=== PATIENT | female | born 1965 | race Caucasian/White ===

== ENCOUNTER 2016-05-04 17:31 | Emergency (ER) | payer BC ==
[2016-05-04 17:50] VITALS: BP 140/93
--- NOTE | 2016-05-04 18:19 | UC ---
Respiratory Complaint HPI - HPI Summary HPI Summary: The patient comes in today for: 1. "I want to make sure that I don't have the flu," and cough. Onset: Last night. Palliative/provocative: Cough drops makes her cough better. Quality: Hacking, dry, harsh. Region: Chest Severity: 06/20 Time: Constant. Associated symptoms: Chest pain: None. Dyspnea: None. Wheezing: None. Cough production: "Very little, clear." Rhinitis: Clear. Fevers: 100.9 this morning. Flu: In and out of nursing homes and hospitals Flu vaccine: She received in December. Body aches: Present. Vomiting: None. Diarrhea: None. * - History of Current Complaint Chief Complaint: UCRespiratory Stated Complaint: COUGH,FEVER,ACHES Time Seen by Provider: 05/04/16 18:09 Hx Obtained From: Patient Hx Last Menstrual Period: 3 WEEKS ?: No - Allergies/Home Medications Allergies/Adverse Reactions: Allergies Allergy/AdvReac Type Severity Reaction Status Date / Time No Known Allergies Allergy Verified 05/04/16 17:41 Home Medications: Home Medications Acetaminophen [Acetaminophen Extra Stren] 2 tab PO TID PRN 05/04/16 [History Confirmed 05/04/16] Ibuprofen [Motrin Ib] 2 tap PO TID PRN 05/04/16 [History Confirmed 05/04/16] Losartan TAB* [Cozaar TAB*] 05/04/16 [History] NIFEdipine ER TAB* [Procardia Xl TAB*] 1 tab PO DAILY 05/04/16 [History Confirmed 05/04/16] PMH/Surg Hx/FS Hx/Imm Hx Previously Healthy: No - Raynaud's/rx = procardia. Endocrine History Of: Denies: Diabetes, Thyroid Disease, Hyperthyroidism, Hypothyroidism, Dyslipidemia Cardiovascular History Of: Reports: Hypertension - TREATED Denies: Cardiac Disorders, Pacemaker/ICD, Myocardial Infarction, Congestive Heart Failure, Atrial Fibrillation, Deep Vein Thrombosis, Bleeding Disorders Respiratory History Of: Denies: COPD, Asthma, Bronchitis, Pneumonia, Pulmonary Embolism GI/ History Of: Denies: Gastroesophageal Reflux, Ulcer, Gastrointestinal Bleed, Gall Bladder Disease, Kidney Stones, Diverticulitis, Renal Disease, Urosepsis Neurological History Of: Denies: TIA, CVA, Dementia, Seizures, Migraine Psychological History Of: Denies: Anxiety, Depression, Bipolar Disorder, Schizophrenia, Post Traumatic Stress Disorder Cancer History Of: Denies: Lung Cancer, Colorectal Cancer, Breast Cancer, Prostate Cancer, Cervical Cancer Other History Of: Negative For: HIV, Hepatitis B, Hepatitis C, Anticoagulant Therapy - Surgical History Surgical History: Yes Surgery Procedure, Year, and Place: 03/2003 Essure procedure,[place] teeth - Family History Known Family History: Positive: Cardiac Disease, Hypertension - Social History Occupation: Employed Full-time Alcohol Use: Occasionally Substance Use Type: None Smoking Status (MU): Never Smoked Tobacco Review of Systems Constitutional: Negative Skin: Negative Eyes: Negative ENT: Sore Throat, Nasal Discharge Respiratory: Cough Cardiovascular: Negative Gastrointestinal: Negative Musculoskeletal: Arthralgia, Myalgia All Other Systems Reviewed And Are Negative: Yes Physical Exam Triage Information Reviewed: Yes Appearance: Well-Appearing, No Pain Distress, Well-Nourished Vital Signs: Initial Vital Signs Temp 99.7 F 05/04/16 17:46 Pulse 101 05/04/16 17:46 Resp 16 05/04/16 17:46 BP 140/93 05/04/16 17:46 Pulse Ox 96 05/04/16 17:46 Vital Signs Reviewed: Yes Eyes: Positive: Conjunctiva Clear. Negative: Discharge ENT: Positive: Hearing grossly normal. Negative: Pharyngeal erythema, Nasal congestion, Nasal drainage, TM bulging, TM dull, TM red, Tonsillar swelling, Tonsillar exudate Dental: Negative: Gross Decay/Caries @, Dental Fracture @ Neck: Positive: Supple, Nontender, No Lymphadenopathy. Negative: Nuchal Rigidity Respiratory: Positive: Lungs clear, No respiratory distress, No accessory muscle use. Negative: Crackles, Wheezing Cardiovascular: Positive: RRR, No Murmur Abdomen Description: Positive: Nontender, No Organomegaly, Soft. Negative: Distended, Guarding Musculoskeletal: Positive: Strength Intact, ROM Intact, No Edema Neurological: Positive: Alert, Muscle Tone Normal Psychological: Positive: Age Appropriate Behavior, Consolable Skin: Negative: rashes, breakdown UC Diagnostic Evaluation - Laboratory O2 Sat by Pulse Oximetry: 96 Diagnostic Studies Comment: Influenza A: (+). Influenza B: (-) Respiratory Course/Dx - Differential Dx/Diagnosis Differential Diagnosis/HQI/PQRI: Bronchitis, Influenza, Laryngitis, Sinusitis Provider Diagnoses: influenza Discharge - Discharge Plan Condition: Stable Disposition: HOME Patient Education Materials: Influenza (ED) Referrals: Lana Hebert MD [Primary Care Provider] - 1 Week (Please see your primary care provider in a week to see how well you are doing. If you get worse, please be seen sooner in the ER or through us.)
[2016-05-04] MEDS ORDERED: Oseltamivir CAP* 75 MG PO ONE (19:07)
[2016-05-04] MEDS ORDERED: Oseltamivir CAP* 75 MG ONE (19:12)
== END 2016-05-04 19:15 | disposition home or self-care (01) ==
LOC: UCEAST 17:31
DX: J11.1 Influenza due to unidentified influenza virus with other respiratory manifestations (principal)
CPT/HCPCS: 87502; 99212; A9270-GY; G0463

== ENCOUNTER 2019-01-04 08:47 | Day surgery (SDC) | payer BC ==
[~2019-01-04 08:47] MED LIST: Buffered Lidocaine 1% SYRIN* 1 ML/SYRINGE INTRADERM ONE; Lactated Ringers 1000 ML Bag* 1,000 ML IV SCH
[2019-01-04] MEDS ORDERED: ceFAZolin 2 GM in NS PREMIX(*) 2 GM/100 ML BAG IVPB ONE (09:50)
[2019-01-04] MEDS ORDERED: Bupivacaine 0.25% EPI 200,000* 30 ML SDV ONE (10:58)
[2019-01-04] MEDS ORDERED: fentaNYL* 50 MCG/ML 2 ML VIAL (100 MCG VIAL) ONE ×3 (11:08→13:06)
[2019-01-04] MEDS ORDERED: Propofol* 10 MG/ML 20 ML BTL ONE (11:08)
[2019-01-04] MEDS ORDERED: Midazolam* 1 MG/ML 5 ML VIAL (5 MG) ONE (11:09)
[2019-01-04] MEDS ORDERED: Rocuronium* 10 MG/ML VIAL ONE (11:09)
[2019-01-04] MEDS ORDERED: Dexamethasone IV* 4 MG/ML 1 ML (4 MG) ONE (11:32)
[2019-01-04] MEDS ORDERED: Ondansetron INJ* 2 MG/ML VIAL ONE (12:05)
[2019-01-04] MEDS ORDERED: Ketorolac INJ* 30 MG/ML 1 ML VIAL ONE (12:05)
[2019-01-04] MEDS ORDERED: diPHENhydraMINE IV* 50 MG/ML 1 ml VIAL (BENADRYL) ONE (12:15)
[2019-01-04] MEDS ORDERED: Glycopyrrolate IV* 0.2 MG/ML 1 ML VIAL ONE (12:15)
[2019-01-04] MEDS ORDERED: Neostigmine Methylsulfate* 3 MG/3 ML SYRINGE ONE (12:15)
[2019-01-04 13:08] VITALS: BP 114/70
[2019-01-04] MEDS ORDERED: oxyCODONE/Acetamin 5/325 MG* TAB PO PRN (13:10)
[2019-01-04] MEDS ORDERED: Naloxone* 0.4 MG/ML 1 ML VIAL IV PRN (13:10)
[2019-01-04] MEDS ORDERED: DiMENhydriNATE IV* 50 MG/ML VIAL IV PUSH PRN (13:10)
[2019-01-04] MEDS ORDERED: Ondansetron INJ* 2 MG/ML VIAL IV PRN (13:10)
[2019-01-04] MEDS ORDERED: HYDROmorphone INJ1* 1 MG/ML SYRINGE IV PRN (13:10)
[2019-01-04] MEDS ORDERED: oxyCODONE/Acetamin 5/325 MG* TAB ONE (13:12)
[2019-01-04] MEDS: fentaNYL* 50 MCG/ML 2 ML VIAL (100 MCG VIAL) IV PRN ×4 (13:13→13:42)
--- NOTE | 2019-01-04 23:26 | OP ---
CC: Lana Ogden MD * DATE OF SURGERY: 01/04/19 - SDS DATE OF : 69 SURGEON: Deonte Hughes MD SPECIAL ORDER JEWELER: WAYNE Miller ANESTHESIOLOGIST: Dr. Morataya. ANESTHESIA: General endotracheal. PRE-OP DIAGNOSIS: Gallbladder polyps. POST-OP DIAGNOSIS: Gallbladder polyps. OPERATIVE PROCEDURE: Laparoscopic cholecystectomy. ESTIMATED BLOOD LOSS: Minimal. IV FLUIDS: Crystalloid. SPECIMENS: Gallbladder. DRAINS: None. COMPLICATIONS: None. COUNTS: Instrument, needle, and sponge counts were correct. DESCRIPTION OF PROCEDURE: The patient was brought to the operating room and placed on the table supine. Sequential compression devices were placed on both lower extremities. General anesthesia was administered. Intravenous antibiotics were administered. The patient's abdomen was prepped and draped in usual sterile fashion. Time-out was performed. Local anesthetic was infiltrated into the skin and soft tissue prior to making each incision. Entry into the abdomen was through a transumbilical vertical incision using an open technique through a prior scar. After accessing the peritoneal cavity with a 12-mm trocar, carbon dioxide was insufflated to a pressure of 15 mmHg. Under direct visualization, a 5 mm trocar was placed in the subxiphoid position. Two 5-mm trocars were placed in the right upper quadrant. Gallbladder was identified. It did not appear to be inflamed. The fundus was grasped and retracted cephalad. The infundibulum was grasped and retracted laterally and inferiorly and the peritoneum investing the gallbladder was incised sharply and dissected free to identify the cystic duct and the cystic artery. Each structure was bluntly dissected out and a critical view was obtained. The structures were doubly clipped and divided. The gallbladder was then freed from attachments to the liver using the hook cautery staying in an avascular plane. Once the gallbladder was free, it was placed into the endoscopic retrieval bag and retrieved through the umbilical site. Hemostasis was assured. Clips were noted to be intact. Ports removed under visualization. Carbon dioxide was released. Umbilical wound was closed with 0 Vicryl in [id number] fashion to approximate the fascia. Skin incisions were closed with 4-0 Monocryl in subcuticular fashion. Steri-strips were applied. The patient tolerated the procedure well, was extubated uneventfully and transferred to the recovery room in stable condition. [id number]/[facility] #: [id number] CAROLANN
== END 2019-01-04 15:46 | disposition home or self-care (01) ==
LOC: OR 08:47
PROVIDERS: ATTEND Surgery
DX: K81.1 Chronic cholecystitis (principal); I10 Essential (primary) hypertension; I73.00 Raynaud's syndrome without gangrene; R01.1 Cardiac murmur, unspecified; D56.3 Thalassemia minor; Z79.1 Long term (current) use of non-steroidal anti-inflammatories (NSAID); Z79.899 Other long term (current) drug therapy
CPT/HCPCS: 88304; A9270-GY; J0690; J1100; J1200; J1885; J2250; J2405; J2704; J2710; J3010